=== PATIENT | male | born 1965 | race Caucasian/White ===

== ENCOUNTER 2017-07-14 10:10 | Emergency (ER) | payer MEDICAID, SELFPAY | END 2017-07-14 12:25 | disposition home or self-care (01) | PROVIDERS: Emergency Provider Nurse Practitioner Family; Visit Provider Nurse Practitioner Family | DX: I10 Essential (primary) hypertension (principal); F17.220 Nicotine dependence, chewing tobacco, uncomplicated | CPT/HCPCS: 36415; 80053; 82550; 82553; 84484; 85025; 93005; 93041; 99201 ==

== ENCOUNTER → 2017-07-15 | Outpatient (POV) | payer MEDICAID, SELFPAY | PROVIDERS: Visit Provider Internal Medicine | DX: R94.31 Abnormal electrocardiogram [ECG] [EKG] (principal); I10 Essential (primary) hypertension | CPT/HCPCS: 93005 ==

== ENCOUNTER → 2017-07-22 | Outpatient (CLI) | payer MEDICAID, SELFPAY | PROVIDERS: Visit Provider Internal Medicine | DX: R94.31 Abnormal electrocardiogram [ECG] [EKG] (principal); I10 Essential (primary) hypertension | CPT/HCPCS: 93017; 93306 ==

== ENCOUNTER 2017-08-27 09:38 | Emergency (ER) | payer MEDICAID, SELFPAY ==
[2017-08-27 10:08] VITALS: BP 157/102; PULSE 120; RESP 20; TEMP 36.8; O2SAT 98; BMI 23.6
[2017-08-27 10:13] LABS: UTC Influenza A Antigen Negative (Negative); UTC Influenza B Antigen Positive (Negative)
--- NOTE | 2017-08-27 10:40 | HMH.EDUTC ---
[facility] [place] Disposition Clinical Impression: Influenza Disposition: Home, Self-Care Condition on Discharge: Good Instructions: Influenza Additional Instructions: ? Start Tamiflu today if you are going to take it. Discussed risk and possible benefits. ? Lots of rest ? Increase Fluids water, Gatorade, powerade, pedialyte,if /toddler/child ? Alternate Tylenol and / or ibuprofen as discussed for fever, aches, chills x 24 hours without medication for symptoms ? Follow up IMMEDIATELY for new or worsening Symptoms OR no noticeable improvement over the next 48-72 hours, 911 for difficulty or breathing ? You or your child area contagious until no fever, aches, chills for 24 hours with medication for symptoms Prescriptions: Dextromethorphan Polistirex [Delsym] 10 ml PO Q12H #200 shashank.er.12h Oseltamivir Phosphate [Tamiflu 75mg Capsule] 75 mg PO BID #10 cap Forms: Work/School Release Time of Disposition: 10:54 Medical Decision Making - Medical Records Medical records reviewed: Yes: I reviewed the patient's medical records. Vital Signs: 08/27/17 10:08 Temperature 98.2 F Temperature Source Temporal Artery Scan Pulse Rate [Right] 120 H Respiratory Rate 20 Blood Pressure [Right Arm] 157/102 Blood Pressure Mean [Right Arm] 120 Blood Pressure Source [Right Arm] Automatic Cuff Blood Pressure Position [Right Arm] Sitting 02 Sat by Pulse Oximetry 98 Oxygen Delivery Method Room Air - Lab Data Lab Results 08/27/17 10:09: Influenza Type A Ag Negative, Influenza Type B Ag Positive A - Tommy Inquiry Pt receiving controlled substance: No Tommy was queried for this patient: No - Reevaluation(s) Time: 10:47 (Patient blood pressure found to be elevated, patient state that he takes blood pressure medication and just took it prior to arrival) [facility] [place] HPI - General Stated complaint: poss flu Mode of Arrival: Ambulatory Source of Information: Patient Limitations: No Limitations Description of Symptoms (Recalled from Triage Doc. by RN): COUGH, CONGESTION, ACHES HEENT Symptoms (Recalled from RN notes): Yes Resp Symptoms (Recalled from RN notes): No Skin Symptoms (Recalled from RN notes): No MS Symptoms (Recalled from RN notes): No Functional Status (Recalled from RN notes): N - History of Present Illness Provider Complaint: Patient state that he began to feel bad yesterday State that his symptoms have continued to get worse. State that he has been having fever, body aches, cough and sore throat State that he feels like he may have the flu - Related Data Home Medications Medication Instructions Recorded Confirmed Metoprolol Tartrate [Metoprolol 100 mg PO BID 08/27/17 08/27/17 Tartrate 100mg Tablet] Previous Rx's Medication Instructions Recorded Dextromethorphan Polistirex 10 ml PO Q12H #200 shashank.er.12h 08/27/17 [Delsym] Oseltamivir Phosphate [Tamiflu 75 mg PO BID #10 cap 08/27/17 75mg Capsule] Allergies Allergy/AdvReac Type Severity Reaction Status Date / Time No Known Allergies Allergy Verified 08/27/17 10:11 - Worker's Comp Is this a Worker's Comp case?: No [facility] History I have reviewed the patient's past medical history: Yes - *Social History Smoking Status: Current every day smoker Tobacco Type: cigarettes Alcohol Intake: never - Psychiatric History Expresses thoughts of harming self/others: None Suicide Plan Description: No Plan ROS Obtained: Yes All systems reviewed & no additional complaints Physical Exam - General General appearance: alert, in no apparent distress - Expanded ENT Exam Nose exam: Present: sinus tenderness Comment: Throat red, irritated drainage noted - Respiratory Respiratory exam: Present: normal lung sounds bilaterally. Absent: respiratory distress - Cardiovascular Cardiovascular exam: Present: tachycardia - Neurological Exam Neurological exam: Present: alert, oriented X3
--- NOTE | 2017-08-27 10:47 | ED_ITS ---
[facility] [place] Disposition Clinical Impression: Influenza Disposition: Home, Self-Care Condition on Discharge: Good Instructions: Influenza Additional Instructions: ? Start Tamiflu today if you are going to take it. Discussed risk and possible benefits. ? Lots of rest ? Increase Fluids water, Gatorade, powerade, pedialyte,if infant/toddler/child ? Alternate Tylenol and / or ibuprofen as discussed for fever, aches, chills x 24 hours without medication for symptoms ? Follow up IMMEDIATELY for new or worsening Symptoms OR no noticeable improvement over the next 48-72 hours, 911 for difficulty or breathing ? You or your child area contagious until no fever, aches, chills for 24 hours with medication for symptoms Prescriptions: Dextromethorphan Polistirex [Delsym] 10 ml PO Q12H #200 shashank.er.12h Oseltamivir Phosphate [Tamiflu 75mg Capsule] 75 mg PO BID #10 cap Forms: Work/School Release Time of Disposition: 10:54 Medical Decision Making - Medical Records Medical records reviewed: Yes: I reviewed the patient's medical records. Vital Signs: 08/27/17 10:08 Temperature 98.2 F Temperature Source Temporal Artery Scan Pulse Rate [Right] 120 H Respiratory Rate 20 Blood Pressure [Right Arm] 157/102 Blood Pressure Mean [Right Arm] 120 Blood Pressure Source [Right Arm] Automatic Cuff Blood Pressure Position [Right Arm] Sitting 02 Sat by Pulse Oximetry 98 Oxygen Delivery Method Room Air - Lab Data Lab Results 08/27/17 10:09: Influenza Type A Ag Negative, Influenza Type B Ag Positive A - Tommy Inquiry Pt receiving controlled substance: No Tommy was queried for this patient: No - Reevaluation(s) Time: 10:47 (Patient blood pressure found to be elevated, patient state that he takes blood pressure medication and just took it prior to arrival) [facility] [place] HPI - General Stated complaint: poss flu Mode of Arrival: Ambulatory Source of Information: Patient Limitations: No Limitations Description of Symptoms (Recalled from Triage Doc. by RN): COUGH, CONGESTION, ACHES HEENT Symptoms (Recalled from RN notes): Yes Resp Symptoms (Recalled from RN notes): No Skin Symptoms (Recalled from RN notes): No MS Symptoms (Recalled from RN notes): No Functional Status (Recalled from RN notes): N - History of Present Illness Provider Complaint: Patient state that he began to feel bad yesterday State that his symptoms have continued to get worse. State that he has been having fever, body aches, cough and sore throat State that he feels like he may have the flu - Related Data Home Medications Medication Instructions Recorded Confirmed Metoprolol Tartrate [Metoprolol 100 mg PO BID 08/27/17 08/27/17 Tartrate 100mg Tablet] Previous Rx's Medication Instructions Recorded Dextromethorphan Polistirex 10 ml PO Q12H #200 shashank.er.12h 08/27/17 [Delsym] Oseltamivir Phosphate [Tamiflu 75 mg PO BID #10 cap 08/27/17 75mg Capsule] Allergies Allergy/AdvReac Type Severity Reaction Status Date / Time No Known Allergies Allergy Verified 08/27/17 10:11 - Worker's Comp Is this a Worker's Comp case?: No [facility] History I have reviewed the patient's past medical history: Yes - *Social History Smoking Status: Current every day smoker Tobacco Type: cigarettes Alcohol Intake: n
== END 2017-08-27 11:08 | disposition home or self-care (01) ==
PROVIDERS: Emergency Provider Nurse Practitioner
DX: J11.1 Influenza due to unidentified influenza virus with other respiratory manifestations (principal); F17.210 Nicotine dependence, cigarettes, uncomplicated
CPT/HCPCS: 87804; 99202